=== PATIENT | male | born 1940 ===

== ENCOUNTER 2020-10-02 23:13 | Emergency (ER) | payer BC, SELFPAY ==
[2020-10-02 23:25] VITALS: BP 122/70; BP 124/74; PULSE 80; RESP 16; O2SAT 95; O2SAT 96; BMI 56.9
--- NOTE | 2020-10-02 23:47 | ED_ITS ---
HPI - Fall General Chief Complaint: Fall Stated Complaint: fall covid + Time Seen by Provider: 10/03/20 00:26 Source: EMS Mode of arrival: EMS Limitations: altered mental status History of Present Illness HPI Narrative: 79-year-old male with hydrocephalus, dementia and altered mental status per baseline, presents from custodial facility for an unwitnessed fall and was diagnosed COVID positive last week. He states that he does not like the place, and that he threw himself on the floor so he could leave. he is known COVID positive from his facility. he does not describe any other symptoms. MD complaint: fall Onset (ago): hour(s) ( Prior to arrival) Fall witnessed: no Place fall occurred: custodial/SNF Loss of consciousness: none Prolonged down time: no Symptoms prior to fall: none Severity: mild Associated symptoms (after fall): denies Related Data Allergies Allergy/AdvReac Type Severity Reaction Status Date / Time No Known Allergies Allergy Verified 10/02/20 23:47 Review of Systems Review of Systems: Constitutional: No Fever, No Chills ENT/Mouth: No Ear Pain, No Hoarseness, No sore throat Eyes: No Eye Pain, No Swelling, No Redness, No Foreign Body Cardiovascular: No Chest Pain, No SOB Respiratory: No Cough, No Dyspnea Gastrointestinal: No Nausea, No Vomiting, No Diarrhea, No abdominal Pain Genitourinary: No Dysuria, No Hematuria Musculoskeletal: no joint pain, No Myalgias, No Joint Swelling Skin: No Skin lacerations, No rash Neuro: No Weakness, No Numbness, No Paresthesias, No Loss of Consciousness, No Dizziness, No Headache Psych: No Anxiety/Panic, No Depression Heme/Lymph: no easy bruising, no Lymphadenopathy Endocrine: No Polyuria, No Polydipsia Yes all other systems are reviewed and are negative PMFSH Past Medical History Source: old records reviewed and obtained from family Medical History Hydrocephalus Social History Social History Advance Directives: No Advance Directives Information Provided: Yes Physical Exam Vital Signs: Vital Signs: Last Vital Signs Temp 97.8 F 10/03/20 00:00 Pulse 73 10/03/20 00:00 Resp 16 10/03/20 00:00 BP 144/79 H 10/03/20 00:00 Pulse Ox 97 10/03/20 00:00 Body Mass Index 56.9 Appearance: Alert. Oriented X2. No acute distress. Eyes: Pupils equal, round and reactive to light. ENT: Pharynx normal. Neck: Normal inspection. Neck supple. CVS: Normal heart rate and rhythm. Pulses normal. Respiratory: No respiratory distress. Breath sounds normal. Abdomen: Soft and nontender. Skin: Skin warm and dry. Normal skin color. Normal skin turgor. Extremities: No lower extremity edema. Neuro: No motor deficit. No sensory deficit. Course Course Course Narrative: 79-year-old male from a custodial facility. He was found on the floor 3 times today, the falls are unwitnessed and there is unknown loss of consciousness after these events. Staff is concerned that he is throwing himself on the floor has been very restless since Seroquel was decreased. Patient is confused with altered mental status at baseline due to hydrocephalus. He tested positive for COVID-19 1 week ago. At this time patient is not reporting any symptoms. We will order CT scan of head and cervical spine. EKG. If there are any concerning findings we will further investigate lab values. CT scan is negative for acute findings, EKG is normal sinus rhythm, no further study required at this time. Discussion with family regarding plan to return to custodial facility, while they do have concerns regarding care, we feel that is the safest place for him to return to that facility as he is COVID positive and placement to another facility is highly unlikely. Family did verbalize understanding of and were appreciative of all the efforts and taken to find other Reasonable options for him. MDM - Fall MDM Narrative Medical decision making narrative: CVA, ACS Differential Diagnosis Differential diagnosis: Likely fracture, concussion with loss of consciousness and concussion without loss of consciousness Medical Records Attestation: I reviewed the patient's medical records. Lab Data Attestation: I reviewed the patient's lab results. Imaging Data CT scan - head: Attestation: I personally reviewed and interpreted this imaging study as follows: Radiologist's impression: EXAMINATION: NONCONTRAST HEAD CT NONCONTRAST CERVICAL SPINE CT INDICATION INFORMATION: Unwitnessed fall COMPARISON: None TECHNIQUE: Separate noncontrast CT examinations of the head and cervical spine were performed. Coronal head CT images and coronal and sagittal cervical spine images were created at the technologist workstation. DLP: 1011 mGy-cm DOSE LOWERING TECHNIQUES: This CT examination was performed using dose optimization techniques as appropriate, variously including the following: - Automated exposure control - Adjustment of mA and/or kV according to patient size (this includes techniques or standardized protocols for targeted exams were dose is matched to indication/reason for exam; i.e. extremities or head) - Use of iterative reconstruction technique FINDINGS: Head: There is no evidence of acute intracranial hemorrhage or territorial infarction. No abnormal mass-effect or midline shift is seen. Jackson to white matter differentiation is well preserved. No extra-axial fluid collections are identified. There is moderate periventricular white matter hypoattenuation consistent with chronic small vessel ischemic disease. Moderate volume loss is noted. Ventricles appear dilated, somewhat out of proportion to sulcal prominence. The osseous structures and soft tissues are normal. The mastoid air cells and visualized portions of the paranasal sinuses are well-aerated. Cervical spine: There is anatomic alignment of the vertebral bodies and posterior elements. Vertebral body heights are maintained. There is multilevel disc space narrowing and associated endplate osteophytes. Facet arthropathy is present, predominantly left-sided. No evidence of acute fracture. No prevertebral soft tissue swelling. Visualized portions of the lung apices demonstrate scarring. The thyroid gland is unremarkable. CT/CT head/brain wo con IMPRESSION: 1. No acute findings identified in the head or cervical spine. 2. Ventricular prominence, which could reflect normal pressure hydrocephalus in the proper clinical setting. 3. Chronic small vessel ischemic disease and volume loss. ECG Data Attestation: I personally reviewed and interpreted this ECG as follows: ECG interpretation date: 10/03/20 ECG interpretation time: 00:31 Interpretation: normal sinus rhythm, normal EKG, ventricular rate 73 beats per minute, p.r. interval 130, QRS 80, QTC 402, QTC 442, no ST elevation or depression indicating ischemia. No prior EKGs available. Discharge Plan Discharge Clinical Impression: Fall Qualifiers: Encounter type: initial encounter Qualified Code(s): W19.XXXA - Unspecified fall, initial encounter Patient Disposition: er SNF Instructions: Fall Prevention (ED) Additional Instructions: you were evaluated for An unwitnessed fall. CT scan of head neck are negative for acute findings requiring emergent intervention. Please follow-up with the physician covering the custodial facility. Thank you for choosing this emergency department for evaluation. Please follow-up with primary care physician as needed. Return to the emergency department for any new, concerning, or worsening symptoms.
--- NOTE | 2020-10-02 23:47 | ECG_ITS ---
Test Reason : FALL Blood Pressure : / mmHG Vent. Rate : 073 BPM Atrial Rate : 073 BPM P-R Int : 130 ms QRS Dur : 080 ms QT Int : 402 ms P-R-T Axes : 063 -15 060 degrees QTc Int : 442 ms Normal sinus rhythm Normal ECG No previous ECGs available Referred By: Brittany Jean-Baptiste Electronically Signed By:MARCO JOHNSON MD
[2020-10-03] VITALS: BP 144/79; PULSE 73; RESP 16; TEMP 36.6; O2SAT 97
--- NOTE | 2020-10-03 | CT_ITS ---
EXAMINATION: NONCONTRAST HEAD CT NONCONTRAST CERVICAL SPINE CT INDICATION INFORMATION: Unwitnessed fall COMPARISON: None TECHNIQUE: Separate noncontrast CT examinations of the head and cervical spine were performed. Coronal head CT images and coronal and sagittal cervical spine images were created at the technologist workstation. DLP: 1011 mGy-cm DOSE LOWERING TECHNIQUES: This CT examination was performed using dose optimization techniques as appropriate, variously including the following: - Automated exposure control - Adjustment of mA and/or kV according to patient size (this includes techniques or standardized protocols for targeted exams were dose is matched to indication/reason for exam; i.e. extremities or head) - Use of iterative reconstruction technique FINDINGS: Head: There is no evidence of acute intracranial hemorrhage or territorial infarction. No abnormal mass-effect or midline shift is seen. Jackson to white matter differentiation is well preserved. No extra-axial fluid collections are identified. There is moderate periventricular white matter hypoattenuation consistent with chronic small vessel ischemic disease. Moderate volume loss is noted. Ventricles appear dilated, somewhat out of proportion to sulcal prominence. The osseous structures and soft tissues are normal. The mastoid air cells and visualized portions of the paranasal sinuses are well-aerated. Cervical spine: There is anatomic alignment of the vertebral bodies and posterior elements. Vertebral body heights are maintained. There is multilevel disc space narrowing and associated endplate osteophytes. Facet arthropathy is present, predominantly left-sided. No evidence of acute fracture. No prevertebral soft tissue swelling. Visualized portions of the lung apices demonstrate scarring. The thyroid gland is unremarkable. CT/CT cervical spine wo con IMPRESSION: 1. No acute findings identified in the head or cervical spine. 2. Ventricular prominence, which could reflect normal pressure hydrocephalus in the proper clinical setting. 3. Chronic small vessel ischemic disease and volume loss.
[2020-10-03 02:00] VITALS: BP 123/79; PULSE 78; RESP 18; O2SAT 97
--- NOTE | 2020-10-03 02:05 | PC.NURSE ---
PT'S C-COLLAR REMOVED PER PA AFTER X-RAYS RESULTS OBTAINED. PT BEING RETURNED TO [facility]. PA SPOKE WITH FAMILY FOR UPDATE. PT AWAITING FOR EMS RETURN TO [facility]. PT IN NAD AT THIS TIME.
--- NOTE | 2020-10-03 02:24 | PC.NURSE ---
report given to Amairani chen [facility]. Report given to Fatuma. pt awaiting for EMS return ride.
== END 2020-10-03 04:13 | disposition skilled nursing facility (03) ==
PROVIDERS: Emergency Provider Student in an Organized Health Care Education/Training Program
DX: S09.90XA Unspecified injury of head, initial encounter (principal); M54.2 Cervicalgia; G44.309 Post-traumatic headache, unspecified, not intractable; M54.5 Low back pain; W01.0XXA Fall on same level from slipping, tripping and stumbling without subsequent striking against object, initial encounter; Y93.01 Activity, walking, marching and hiking; Y92.099 Unspecified place in other non-institutional residence as the place of occurrence of the external cause; Y99.9 Unspecified external cause status; Z86.19 Personal history of other infectious and parasitic diseases; Z79.899 Other long term (current) drug therapy
CPT/HCPCS: 70450; 72125; 93005; 99284